=== PATIENT | female | born 2000 | race Caucasian/White ===

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

== ENCOUNTER 2021-11-27 12:53 | Day surgery (SDC) | payer OTHER, BC ==
[~2021-11-27] VITALS: Ht 162.6 cm; Wt 51.5 kg
--- NOTE | 2021-11-27 13:05 | NUR ---
21 Year old patient admitted to [facility] [place] bay #[address] via ambulation, no use of assistive devices. Mother is present and the patient states it is "okay" to ask personal health history questions with her present. Medications and HX reviewed. Procedure verified and consent signed. Patient agreed to a urine HCG test. Vitals obtained. Physical assessment completed. Call luke is at bedside. Warm blanket provided. Non-slip socks are on.
[2021-11-27] MEDS ORDERED: BLISOVI FE 1.51 EACH PO (13:09)
--- NOTE | 2021-11-27 13:25 | NUR ---
HCG urine obtained and sent to lab. Patient has changed into a clean gown. Warm blanket provided.
[2021-11-27 13:48] VITALS: BP 116/73; PULSE 88; TEMP 97.8
--- NOTE | 2021-11-27 13:57 | NUR ---
PO medications administered.
[2021-11-27] MEDS ORDERED: OXYCODONE H5 MG/5 ML PO (16:27)
[2021-11-27 16:50] VITALS: BP 101/67; PULSE 62; TEMP 98
--- NOTE | 2021-11-27 16:50 | NUR ---
Patient arrived from the PACU escorted by NYA Mortensen. Patient is alert and oriented. She is tolerating ice chips and water well. Patient is on a full liquid diet and requested chocolate pudding. vitals obtained. Patient denied pain. Call lkue is at bedside. Mother is present.
--- NOTE | 2021-11-27 16:55 | NUR ---
Patient is tolerating her chocolate pudding. Denies neusea. No vomiting.
[2021-11-27 16:59] VITALS: TEMP 98
[2021-11-27 17:05] VITALS: BP 102/66; PULSE 57
--- NOTE | 2021-11-27 17:05 | NUR ---
vitals obtained. Call luke is within reach.
[2021-11-27 17:20] VITALS: BP 100/59; PULSE 60
--- NOTE | 2021-11-27 17:20 | NUR ---
Patient was assisted to the bathroom and was able to void, then back to bed. IV was discontined. Catheter tip intact. Pressure dressing applied. Discharge instructions and educational material was reviewed at this time. Patient and Mother verbalized understanding and signed the related paperwork. Both denied having any further questions or concerns.
--- NOTE | 2021-11-27 17:45 | NUR ---
Patient was escorted out to the ED entrence by Charo FAY via wheelchair. Patient was transferred into the care of her Mother, who is present to drive. Patient got into the front seat and is wearing her seat belt. Mother has the discharge packet.
== END 2021-11-27 17:45 | disposition home or self-care (01) ==
LOC: SDCO 12:53
DX: J35.01 Chronic tonsillitis (principal); Z86.16 Personal history of COVID-19
CPT/HCPCS: J0330; J1100; J1170; J2405; J2704; J3010; J7120